=== PATIENT | male | born 1975 | race Two or more races ===

== ENCOUNTER 2017-07-26 09:49 | Outpatient (CLI) ==
[2017-07-26 10:11] LABS: BASOPHILS # (AUTO) 0.1 K/uL (0-0.2); BASOPHILS % (AUTO) 0.6 % (0.0-3.0); EOSINOPHILS # (AUTO) 0.2 K/ul (0.0-0.7); EOSINOPHILS % (AUTO) 2.6 % (0.0-7.0); IMMATURE GRANULOCYTE % (AUTO) 0.7 % (0.0-5.0); LYMPHOCYTES % (AUTO) 31.6 (10.0-50.0); MEAN CORPUSCULAR HEMOGLOBIN 33.4 pg (27.0-31.0); MEAN CORPUSCULAR VOLUME 95.5 fl (80.0-94.0); MONOCYTES # (AUTO) 0.7 K/uL (0.4-2.0); MONOCYTES % (AUTO) 7.9 (0-10); NEUTROPHILS # (AUTO) 5.3 K/ul (2.0-6.9); NEUTROPHILS % (AUTO) 56.6; PLATELET COUNT 259 10^3/uL (140-440); RED BLOOD COUNT 4.19 10^6/ul (4.70-6.10); WHITE BLOOD COUNT 9.36 K/ul (4.2-10.2)
[2017-07-26 10:51] LABS: ALBUMIN/GLOBULIN RATIO 1.11; BILIRUBIN,TOTAL 0.97 mg/dL (0.00-1.20); BUN/CREATININE RATIO 13.04; CALCIUM 9.6 mg/dL (8.2-10.2); CHOL/HDL RATIO 5.8 (4.5-6.4); CREATININE 1.38 mg/dL (0.60-1.10); TOTAL PROTEIN 7.6 g/dL (6.4-8.2)
== END 2017-07-26 09:50 | disposition home or self-care (01) ==
LOC: LAB 09:49
PROVIDERS: ATTEND Nurse Practitioner Family
DX: Z00.00 Encounter for general adult medical examination without abnormal findings (principal)
CPT/HCPCS: 36415; 80053; 80061; 84443; 85025

== ENCOUNTER 2017-07-31 13:53 | Outpatient (CLI) | END 2017-07-31 13:54 | disposition home or self-care (01) | LOC: CAR 13:53 | PROVIDERS: ATTEND Nurse Practitioner Family | DX: R03.0 Elevated blood-pressure reading, without diagnosis of hypertension (principal); R06.81 Apnea, not elsewhere classified; R06.83 Snoring; R06.89 Other abnormalities of breathing ==

== ENCOUNTER 2017-08-18 15:15 | Outpatient (CLI) | END 2017-08-18 15:16 | disposition home or self-care (01) | LOC: CAR 15:15 | PROVIDERS: ATTEND Psychiatry & Neurology Neurology | DX: G47.33 Obstructive sleep apnea (adult) (pediatric) (principal) ==

== ENCOUNTER 2017-10-07 11:47 | Outpatient (CLI) ==
--- NOTE | 2017-10-07 12:57 | DI ---
EXAM: KUB HISTORY: Unspecified abdominal pain. COMPARISON: None FINDINGS: There is scattered stool and gas throughout the abdomen pelvis. There are no dilated loops of bowel, air fluid levels, portal venous gas or pneumatosis. The osseous structures are unremarkab le. Soft tissues are normal. IMPRESSION: Nonspecific, nonobstructive bowel gas pattern.
== END 2017-10-07 11:48 | disposition home or self-care (01) ==
LOC: RAD 11:47
PROVIDERS: ATTEND Nurse Practitioner Family
DX: E78.5 Hyperlipidemia, unspecified (principal); R10.9 Unspecified abdominal pain; R14.0 Abdominal distension (gaseous); E03.9 Hypothyroidism, unspecified
CPT/HCPCS: 36415; 80053; 80061; 84443; 86677

== ENCOUNTER 2017-12-12 15:04 | Outpatient (CLI) | END 2017-12-12 15:05 | disposition home or self-care (01) | LOC: RHC-LAB 15:04 | PROVIDERS: ATTEND Nurse Practitioner Family | DX: E03.9 Hypothyroidism, unspecified (principal); R94.6 Abnormal results of thyroid function studies | CPT/HCPCS: 36415; 84443 ==

== ENCOUNTER 2018-07-17 08:09 | Outpatient (CLI) | payer OTHER ==
--- NOTE | 2018-07-17 09:57 | US ---
EXAM: Right upper quadrant abdominal ultrasound. History: Epigastric abdominal pain. Technique: Multiple sonographic images through the abdomen were obtained. Color duplex Doppler was used to interrogate vascular flow. Findings: The liver is enlarged and diffusely echogenic. No abdominal ascites. There is antegrade flow within the main portal vein. Limited visualization of the right kidney demonstrates no evidence for hydron ephrosis. The questionable 5 cm lesion within the right hepatic lobe. The visualized pancreas demons trates a nonspecific hyperechoic appearance. No shadowing gallstones. Gallbladder wall is not thicke danielle. Common bile duct measures 0.5 cm in caliber. Impression: 1. Hepatic steatosis. 2. Questionable solid liver mass. Recommend further evaluation with an MRI liver mass protocol. 3. Nonspecific hyperechoic appearance of the pancreas.
== END 2018-07-17 08:10 | disposition home or self-care (01) ==
LOC: RAD 08:09
PROVIDERS: ATTEND Physician Assistant
DX: R10.13 Epigastric pain (principal)

== ENCOUNTER 2018-07-24 07:59 | Outpatient (CLI) | payer OTHER ==
--- NOTE | 2018-07-24 15:31 | MRI ---
Exam: MRI of the abdomen with and without contrast. History: Abnormal liver ultrasound. The previous liver ultrasound was performed for epigastric abdom inal pain and reports hepatic steatosis and questionable solid liver mass. Procedures: Axial and coronal T2 HASTE, axial T1W in and out of phase, axial inversion recovery, axi al T2 fat-saturated, axial diffusion weighted images with ADC maps and axial T1 fat-saturated images of the abdomen were obtained prior to the intravenous administration of 16 ml Dotarem.. Dynamic post contrast axial T1 fat-saturated images of the abdomen were obtained as well as a coronal T1 fat satur ated series. Comparison: Right upper quadrant abdominal ultrasound 07/17/2018. Findings: There is within normal limits of size. There is diffuse signal drop throughout the liver with apparent fat sparing in the posterior aspect of segment two of the liver measuring 2.5 cm x 2.7 cm. There is no enhancing intrahepatic mass, biliary ductal dilatation or diffusion restricting lesi on. the gallbladder is nondilated, without filling defect. The common bile duct is not dilated. The spleen, pancreas and adrenal glands appear within normal limits. The kidneys are symmetric in size without hydronephrosis or enhancing renal mass. The stomach and the visualized portions of small and large bowel appear grossly within normal limits. There is no free fluid or mass is not identified i n the abdomen. The osseous marrow signal appears within normal limits. Impressions: Hepatic steatosis. 2.5 cm x 2.7 cm area of fat sparing in the posterior segment four t he liver. There is no fat sparing or enhancing mass to correspond to the 5 cm area of interest in the right hep atic lobe on the prior ultrasound. No biliary ductal dilatation.
== END 2018-07-24 08:00 | disposition home or self-care (01) ==
LOC: RAD 07:59
PROVIDERS: ATTEND Physician Assistant
DX: R93.89 Abnormal findings on diagnostic imaging of other specified body structures (principal)

== ENCOUNTER 2018-11-18 17:52 | Emergency (ER) ==
[2018-11-18 18:02] VITALS: BP 144/88; TEMP 98.7; BMI 32.6
[2018-11-18] MEDS ORDERED: TORADOL IVP STA (19:29)
[2018-11-18] MEDS ORDERED: ROCEPHIN 1 GM in SODIUM CHLORIDE 50 ML IV STA (19:37)
--- NOTE | 2018-11-18 19:41 | ED.PDOC ---
General ED Provider: Dr. AKASH HATHAWAY Chief Complaint: Knee Pain/Injury Stated Complaint: Patient is a 42 year old male who comes to the ER with complains of pain to right knee for 1 week. He denies any injury. States that it has been swelling and is tender to touch. Still able to bear weight. No prior history of Gout or arthritis in the past Time Seen by Physician: 19:38 Mode of Arrival: Walk-In Information Source: Patient Exam Limitations: No limitations Primary Care Provider: LUAN CLAYTON Nursing and Triage Documentation Reviewed and Agree: Yes Does patient meet sepsis criteria?: No System Inflammatory Response Syndrome: Not Applicable Sepsis Protocol: For patient's 13 years and over: Temp is 96.8 and below OR 101 and greater Pulse >90 BPM Resp >20/minute Acutely Altered Mental Status Are patient's symptoms suggestive of a new infection, such as: -Pneumonia -Skin, Soft Tissue -Endocarditis -UTI -Bone, Joint Infection -Implantable Device -Acute Abdominal Infection -Wound Infection -Meningitis -Blood Stream Catheter Infection -Unknown Musculoskeletal Complaint Exam - Knee Pain Complaint/Exam Mechanism of Injury: Reports: No known trauma Onset/Duration: constant Symptoms Are: Still present Initial Severity: Moderate Current Severity: Severe Location: Reports: Diffuse Character: Reports: Aching, Throbbing Alleviating: Reports: None Aggravating: Reports: Movement, Weight bearing, Prolonged standing, Stairs Associated Signs and Symptoms: Reports: Swelling, Redness (mild with warmth to touch ) Able to Bear Weight: Yes Related History: Denies: Similar episode, Occupational injury Septic Arthritis Risk Factors: Denies: Extremes of age, IV drug abuse, Endocarditis, Imunosuppressed, Preexisting joint disease, Prosthesis Gout Risk Factors: Reports: >40 years old, Male, Obesity. Denies: Diabetes, HTN , Renal Disease, Hyperlipidemia, Alcohol abuse, Psoriasis, PVD Related Surgical History: Denies: Right Knee, Left Knee, Other Orthopedic Surgery Knee Findings: Present: Swelling, Erythema, Tenderness, Effusion (minimal ) Alem Test Positive: No Son Test Positive: No Knee Picture: 1 - mild redness and swelling of the right knee Differential Diagnoses: Infection, Sprain, Strain, Gout, Other (cellulitis ) Review of Systems - Review Of Systems Constitutional: Reports: No symptoms Eyes: Reports: No symptoms Ears, Nose, Mouth, Throat: Reports: No symptoms Respiratory: Reports: No symptoms Cardiac: Reports: No symptoms GI: Reports: No symptoms : Reports: No symptoms Musculoskeletal: Reports: Joint pain, Joint swelling, Muscle pain (on the right lower leg ) Skin: Reports: No symptoms Neurological: Reports: Anxiety Endocrine: Reports: No symptoms Hematologic/Lymphatic: Reports: No symptoms All Other Systems: Reviewed and Negative Past Medical History - Past Medical History Previously Healthy: Yes Endocrine: Reports: Hypothyroid Cardiovascular: Reports: None Respiratory: Reports: None Hematological: Reports: None Gastrointestinal: Reports: None Genitourinary: Reports: None Neuro/Psych: Reports: None Musculoskeletal: Reports: None Cancer: Reports: None - Surgical History General Surgical History: Reports: Appendectomy - Family History Family History: Reports: None - Social History Smoking Status: Current some day smoker Hx Substance Use: No Alcohol Screening: Occasionally - Immunizations Tetanus Shot up to Date: Yes Physical Exam - Physical Exam Appearance: Ill-appearing, Well-nourished Ill-appearing: Mild Pain Distress: Severe Eyes: EOMI, Conjunctiva clear ENT: Oropharynx normal Neck: Supple Respiratory: Airway patent, Breath sounds clear, Breath sounds equal, Respirations nonlabored Cardiovascular: RRR, Pulses normal, No rub, No murmur GI/: Soft, Nontender, No masses, Bowel sounds normal, No Organomegaly Musculoskeletal: Normal strength, ROM intact, No calf tenderness, Edema (1+ pitting on the right leg ) Skin: Warm, Dry, Normal color Neurological: Sensation intact, Motor intact, Reflexes intact, Cranial nerves intact, Alert, Oriented Psychiatric: Affect appropriate, Mood appropriate Interpretation - Radiology Interpretation Radiology Interpretation By: Radiologist Radiology Results: Negative Exam Interpreted: Other (Right knee ) Critical Care Note - Critical Care Note Total Time (mins): 0 Course - Course Hematology/Chemistry: 11/18/18 19:58 11/18/18 19:58 Orders, Labs, Meds: Lab Review 11/18/18 11/18/18 11/18/18 19:58 19:58 19:58 WBC 9.81 RBC 4.39 L Hgb 13.1 L Hct 38.5 L MCV 87.7 MCH 29.8 MCHC 34.0 RDW Coeff of Prabha 15.4 H Plt Count 306 Immature Gran % (Auto) 0.5 Neut % (Auto) 55.4 Lymph % (Auto) 31.9 Wood % (Auto) 8.6 Eos % (Auto) 2.9 Baso % (Auto) 0.7 Immature Gran # (Auto) 0.1 Neut # (Auto) 5.4 Lymph # (Auto) 3.1 Wood # (Auto) 0.8 Eos # (Auto) 0.3 Baso # (Auto) 0.1 ESR Sodium 139.8 Potassium 3.98 Chloride 106.4 Carbon Dioxide 22.4 Anion Gap 14.98 BUN 15.6 Creatinine 0.76 Estimated GFR (MDRD) 112.00 BUN/Creatinine Ratio 20.52 Glucose 109.8 H Lactic Acid 0.93 Uric Acid 3.62 Calcium 9.83 Total Bilirubin 0.48 AST 27.9 ALT 22.6 Alkaline Phosphatase 105.8 Total Protein 7.54 Albumin 4.18 Globulin 3.36 Albumin/Globulin Ratio 1.24 Procalcitonin 11/18/18 11/18/18 19:58 19:58 WBC RBC Hgb Hct MCV MCH MCHC RDW Coeff of Prabha Plt Count Immature Gran % (Auto) Neut % (Auto) Lymph % (Auto) Wood % (Auto) Eos % (Auto) Baso % (Auto) Immature Gran # (Auto) Neut # (Auto) Lymph # (Auto) Wood # (Auto) Eos # (Auto) Baso # (Auto) ESR 17 H Sodium Potassium Chloride Carbon Dioxide Anion Gap BUN Creatinine Estimated GFR (MDRD) BUN/Creatinine Ratio Glucose Lactic Acid Uric Acid Calcium Total Bilirubin AST ALT Alkaline Phosphatase Total Protein Albumin Globulin Albumin/Globulin Ratio Procalcitonin < 0.05 Orders Category Date Time Status ED IV/MEDIPORT/POWERPORT .ONCE EMERGENCY 11/18/18 19:29 Active BLOOD CULTURE Stat LAB 11/18/18 20:19 Received CBC W/ AUTO DIFF Stat LAB 11/18/18 19:58 Completed COMPREHENSIVE METABOLIC PANEL Stat LAB 11/18/18 19:58 Completed ESR Stat LAB 11/18/18 19:58 Completed LACTIC ACID Stat LAB 11/18/18 19:58 Completed PROCALCITONIN Stat LAB 11/18/18 19:58 Completed URIC ACID Stat LAB 11/18/18 19:58 Completed 0.9 % Sodium Chloride [Saline Flush] MEDS 11/18/18 19:35 Ordered 1 syr IVF PRN PRN Ceftriaxone Sodium [Rocephin] MEDS 11/18/18 19:52 Discontinued 1 gm .ROUTE .STK-MED ONE Ceftriaxone Sodium [Rocephin] 1 gm MEDS 11/18/18 19:37 Discontinued 0.9 % Sodium Chloride [Sodium Chloride] 50 ml IV ONCE Ketorolac Tromethamine [Toradol] MEDS 11/18/18 19:29 Discontinued 30 mg IVP ONCE STA Morphine Sulfate [Morphine 4 mg/ml Syringe] MEDS 11/18/18 20:15 Discontinued 4 mg IVP ONCE STA Ondansetron HCl/Pf [Zofran 4 mg/2 ml] MEDS 11/18/18 20:15 Discontinued 4 mg IVP ONCE STA KNEE, RIGHT 4 VIEWS Stat RADS 11/18/18 19:36 Completed Medications Generic Name Dose Route Start Last Admin Trade Name Freq PRN Reason Stop Dose Admin Sodium Chloride 1 syr 11/18/18 19:35 11/18/18 19:55 Saline Flush IVF 1 syr PRN PRN Administration To flush IV Discontinued Medications Generic Name Dose Route Start Last Admin Trade Name Freq PRN Reason Stop Dose Admin Ceftriaxone Sodium 1 gm/ 50 mls @ 75 mls/hr 11/18/18 19:37 11/18/18 19:55 Sodium Chloride IV 11/18/18 20:16 75 mls/hr ONCE STA Administration Ketorolac Tromethamine 30 mg 11/18/18 19:29 11/18/18 19:56 Toradol IVP 11/18/18 19:30 30 mg ONCE STA Administration Morphine Sulfate 4 mg 11/18/18 20:15 11/18/18 20:24 Morphine 4 Mg/Ml Syringe IVP 11/18/18 20:16 4 mg ONCE STA Administration Ondansetron HCl 4 mg 11/18/18 20:15 11/18/18 20:25 Zofran 4 Mg/2 Ml IVP 11/18/18 20:16 4 mg ONCE STA Administration Vital Signs: Temp Pulse Resp BP Pulse Ox 11/18/18 17:53 98.7 F 86 20 144/88 H 98 Departure - Departure Time of Disposition: 20:52 Disposition: HOME SELF-CARE Discharge Problem: Knee pain, Cellulitis of right lower leg Instructions: Cellulitis (ED), Knee Pain (ED), Arthralgia (ED) Condition: Stable Pt referred to PMD for follow-up: Yes IPMP verified?: No Additional Instructions: Follow up with PCP in 2 days Take Medications as prescribed Return if worse Prescriptions: Hydrocodone Bit/Acetaminophen [Marion 5-325] 1 each PO Q6HR PRN #10 tablet PRN Reason: severe pain Cephalexin [Keflex] 500 mg PO Q8HR #30 capsule Ibuprofen [Motrin] 600 mg PO Q6H PRN #30 tablet PRN Reason: Analgesia Allergies/Adverse Reactions: Allergies No Known Allergies Allergy (Unverified 10/01/16 13:23) Home Medications: Ambulatory Orders Cephalexin [Keflex] 500 mg PO Q8HR #30 capsule 11/18/18 Hydrocodone Bit/Acetaminophen [Marion 5-325] 1 each PO Q6HR PRN #10 tablet Ibuprofen [Motrin] 600 mg PO Q6H PRN #30 tablet 11/18/18 Levothyroxine Sodium [Synthroid] 137 mcg PO DAILY 11/18/18 Terbinafine HCl [Lamisil] 250 mg PO DAILY 11/18/18 Disposition Discussed With: Patient, Family
[2018-11-18] MEDS ORDERED: ROCEPHIN ONE (19:52)
--- NOTE | 2018-11-18 20:00 | DI ---
EXAM: Four views of the right knee HISTORY: Pain swelling TECHNIQUE: AP, oblique, lateral and sunrise views of the right knee were obtained. FINDINGS: No acute fractures are seen. The joint spaces are normal. There is no joint effusion. T he soft tissues are normal. IMPRESSION: No acute abnormalities are seen within the right knee.
[2018-11-18] MEDS ORDERED: ZOFRAN 4 MG/2 ML IVP STA (20:15)
[2018-11-18] MEDS ORDERED: MORPHINE 4 MG/ML SYRINGE IVP STA (20:15)
== END 2018-11-18 21:05 | disposition home or self-care (01) ==
LOC: ED 17:52
DX: M25.561 Pain in right knee (principal); L03.115 Cellulitis of right lower limb; F17.210 Nicotine dependence, cigarettes, uncomplicated
CPT/HCPCS: 36415; 80053; 83605; 84145; 84550; 85025; 85651; 87040; 96365; 96375; 99283

== ENCOUNTER 2019-02-22 15:51 | Outpatient (CLI) | END 2019-02-22 15:52 | disposition home or self-care (01) | LOC: LAB 15:51 | PROVIDERS: ATTEND Nurse Practitioner Family | DX: R19.7 Diarrhea, unspecified (principal) ==